=== PATIENT | female | born 1995 | race Two or more races ===

== ENCOUNTER 2017-08-03 14:01 | Emergency (ER) | payer OTHER ==
[2017-08-03] MEDS: FAMOTIDINE 20 MG TAB PO (14:58)
[2017-08-03] MEDS: ACETAMINOPHEN 500 MG TAB PO (14:58)
[2017-08-03] MEDS: LIDOCAINE/MYLANTA 40 ML BTL PO (14:59)
[2017-08-03 15:09] LABS: ADD MAN DIFF? NO
[2017-08-03 15:11] LABS: WHITE BLOOD COUNT 7.8 10^3/ul (4.8-10.8)
[2017-08-03 15:11] LABS: BASOPHILS % 0.3 % (0.0-2.0); EOSINOPHILS # 0.3 10^3/ul (0.0-0.5); EOSINOPHILS % 3.5 % (0.0-7.0); HEMATOCRIT 38.2 % (37.0-47.0); HEMOGLOBIN 13.2 g/dl (12.0-16.0); LYMPHOCYTES # 1.7 10^3/ul (0.8-2.9); LYMPHOCYTES % 21.8 % (15.0-51.0); MEAN CORPUSCULAR HEMOGLOBIN 30.9 pg (29.0-33.0); MEAN CORPUSCULAR HGB CONC 34.6 g/dl (32.0-37.0); MEAN CORPUSCULAR VOLUME 89.5 fl (82.0-101.0); MEAN PLATELET VOLUME 10.2 fl (7.4-10.4); MONOCYTE # 0.9 10^3/ul (0.3-0.9); NEUTROPHIL # 4.9 10^3/ul (1.6-7.5); NEUTROPHILS % 63.1 % (39.0-77.0); PLATELET COUNT 237 10^3/UL (140-415); RED BLOOD COUNT 4.27 10^6/ul (4.20-5.40)
[2017-08-03 15:21] LABS: ADD UMIC YES; UR ASCORBIC ACID NEGATIVE (NEGATIVE); UR BILIRUBIN (Dip) NEGATIVE (NEGATIVE); UR BLOOD (Dip) 2+ mg/dL (NEGATIVE); UR CLARITY CLEAR (CLEAR); UR COLOR STRAW (YELLOW); UR GLUCOSE (Dip) NEGATIVE (NEGATIVE); UR KETONES (Dip) NEGATIVE (NEGATIVE); UR LEUKOCYTE ESTERASE (Dip) TRACE Leu/ul (NEGATIVE); UR NITRITE (Dip) NEGATIVE (NEGATIVE); UR RBC 1 /HPF (0-5); UR TOTAL PROTEIN (Dip) NEGATIVE (NEGATIVE); UR UROBILINOGEN (Dip) NEGATIVE (NEGATIVE); UR WBC 0 /HPF (0-5)
[2017-08-03 15:32] LABS: ALANINE AMINOTRANSFERASE 27 IU/L (13-69); ALBUMIN 4.6 g/dl (3.3-4.9); ALBUMIN/GLOBULIN RATIO 1.39; ALKALINE PHOSPHATASE 121 IU/L (42-121); ANION GAP 17 (8-16); ASPARTATE AMINO TRANSFERASE 21 IU/L (15-46); BILIRUBIN,INDIRECT 0.2 mg/dl (0-1.1); BILIRUBIN,TOTAL 0.2 mg/dl (0.2-1.3); BLOOD UREA NITROGEN 18 mg/dl (7-20); CALCIUM 9.7 mg/dl (8.4-10.2); CARBON DIOXIDE 28 mmol/L (21-31); CHLORIDE 102 mmol/L (97-110); CREATININE 0.69 mg/dl (0.44-1.00); GLUCOSE 95 mg/dl (70-220); LIPASE 218 U/L (23-300); POTASSIUM 4.5 mmol/L (3.5-5.1); SODIUM 142 mmol/L (135-144); TOTAL PROTEIN 7.9 g/dl (6.1-8.1)
== END 2017-08-03 16:00 | disposition home or self-care (01) ==
LOC: FTE 14:01
DX: R10.13 Epigastric pain (principal)
CPT/HCPCS: 71045; 76705; 80053; 81001; 83690; 85025; 99285-25

== ENCOUNTER 2018-03-26 13:30 | Emergency (ER) | payer OTHER ==
[2018-03-26] MEDS: LIDOCAINE/MYLANTA 40 ML BTL PO (14:12)
== END 2018-03-26 15:18 | disposition home or self-care (01) ==
LOC: FTE 13:30
DX: R07.9 Chest pain, unspecified (principal)
CPT/HCPCS: 71045; 93005; 99284-25

== ENCOUNTER 2018-03-27 05:17 | Emergency (ER) | payer OTHER | END 2018-03-27 06:51 | disposition home or self-care (01) | LOC: FTE 05:17 | DX: M62.830 Muscle spasm of back (principal); F41.9 Anxiety disorder, unspecified; R40.2412 Glasgow coma scale score 13-15, at arrival to emergency department | CPT/HCPCS: 99282; Z7502 ==